=== PATIENT | female | born 1985 ===

== ENCOUNTER 2020-01-04 11:25 | Emergency (ER) | payer OTHER ==
[~2020-01-04] VITALS: Ht 165.1 cm; Wt 75.0 kg
[2020-01-04 11:47] VITALS: BP 116/71
== END 2020-01-04 12:56 | disposition home or self-care (01) ==
LOC: EMS 11:27
DX: Z02.89 Encounter for other administrative examinations (principal)
CPT/HCPCS: 71046; 71046-TC